=== PATIENT | female | born 1970 | race Caucasian/White ===

== ENCOUNTER → 2020-05-04 08:59 | Outpatient (CLI) | payer OTHER, BC, SELFPAY ==
--- NOTE | ~2020-05-04 | XR_ITS ---
XR finger 3rd LT min 2V DATE: 05/04/2020 09:21 INDICATION: Foreign body third finger, possible piece of what TECHNIQUE: 4 views COMPARISON: None FINDINGS: No radiopaque soft tissue foreign body is evident. No recent fracture, dislocation, periost eal reaction or bone destruction is evident. Joint spaces are preserved. IMPRESSION: No significant abnormality Reviewed, dictated and finalized at location B. IMPRESSION: No significant abnormality
== END ==
PROVIDERS: Visit Provider Specialist
DX: S60.453A Superficial foreign body of left middle finger, initial encounter (principal); X58.XXXA Exposure to other specified factors, initial encounter
CPT/HCPCS: 73140

== ENCOUNTER 2022-09-24 16:50 | Emergency (ER) | payer OTHER, BC, SELFPAY ==
--- NOTE | ~2022-09-24 | XR_ITS ---
EXAMINATION: XR chest 2V Exam Date/Time: 09/24/2022 17:20 [facility]LL[facility] RUNNER HISTORY: heart palpitations Comparison: 06/17/2019. RESULT: Lines, tubes, and devices: None. Lungs and pleura: Clear. Cardiomediastinal silhouette: Stable. Other: No acute osseous or upper abdominal finding. IMPRESSION: No acute cardiopulmonary process. Reviewed, dictated and finalized at location K. LER RUNNER
--- NOTE | 2022-09-24 16:51 | ECG_ITS ---
Measurements Intervals [place] Rate: 101 P: 38 OR: 149 QRS: -18 QRSD: 105 T: 32 QT: 355 QTc: 461 Interpretive Statements SINUS TACHYCARDIA RSR' V1 AND V2 NONSPECIFIC T-WAVE ABNORMALITY BORDERLINE ECG NO PREVIOUS ECG AVAILABLE FOR COMPARISON Electronically Signed On 09-25-2022 16:44:48 [employer] DEVELOPER by Wilber Abarca M.D.
[2022-09-24 16:54] VITALS: BP 161/101; PULSE 101; RESP 20; TEMP 36.4; O2SAT 99
[2022-09-24 17:26] LABS: Alanine Aminotransferase 20 U/L (6-35); Albumin Level 4.4 g/dL (3.5-5.1); Alkaline Phosphatase 64 U/L (38-126); Anion Gap 5 mmol/L (8-16); Aspartate Amino Transferase 26 U/L (14-36); Bilirubin,Total 0.4 mg/dL (0.2-1.3); Blood Urea Nitrogen 19 mg/dL (7-17); Calcium 9.1 mg/dL (8.4-10.2); Carbon Dioxide 24 mmol/L (22-30); Chloride 102 mmol/L (98-107); Estimated CRCL calculation 123 ml/min; Estimated Glomerular Filt Rate > 60; Glucose 94 mg/dL (65-110); Lipase 85 U/L (23-300); Potassium 4.2 mmol/L (3.4-5.0); Sodium 131 mmol/L (137-145)
[2022-09-24 17:28] LABS: Basophils Absolute Auto 0.1 K/mm3 (0.0-0.1); Basophils Percent Auto 0.7 % (0.2-1.2); Eosinophils Absolute Auto 0.1 K/mm3 (0-0.3); Eosinophils Percent Auto 1.4 % (0-4.4); Hematocrit 40.7 % (37.0-47.0); Hemoglobin 13.3 g/dL (12.0-15.0); Immature Granulocyte Absolute 0.04 K/mm3 (0.00-0.031); Immature Granulocyte Percent A 0.5 % (0-0.5); Lymphocytes Absolute Auto 2.18 K/mm3 (0.9-3.2); Lymphocytes Percent Auto 26.1 % (18.3-44.2); Mean Corpuscular HGB Conc 32.7 g/dl (32-36); Mean Corpuscular Hemoglobin 27.5 pg (26-34); Mean Corpuscular Volume 84.3 fl (80-100); Mean Platelet Volume 10.4 fl (7.4-10.4); Monocytes Absolute Auto 0.6 K/mm3 (0.1-0.6); Monocytes Percent Auto 6.8 % (2.6-8.5); Neutrophils Absolute Auto 5.4 K/mm3 (1.3-6.7); Neutrophils Percent Auto 64.5 % (45.5-73.1); Platelet Count Result 253 k/mm3 (150-375); Red Blood Count 4.83 M/mm3 (4.2-5.4); Red Cell Distribution Width 13.8 % (11.5-14.5); White Blood Count 8.3 K/mm3 (4.5-10.0)
[2022-09-24 17:38] LABS: Troponin I < 0.012 ng/mL (0.000-0.034)
[2022-09-24 17:39] LABS: Prothrombin Time 12.5 Seconds (11.1-14.7)
[2022-09-24] MEDS: ASPIRIN 81 MG CHEWABLE TABLET 324 MG PO (17:46)
[2022-09-24 17:52] LABS: Troponin I < 0.012 ng/mL (0.000-0.034)
[2022-09-24] MEDS: SODIUM CHLORIDE 0.9% IV 1,000 ML 999 ML IV CONT (19:05)
--- NOTE | 2022-09-24 19:20 | ED.GENADULT ---
HPI - General Adult General Chief complaint: Arrhythmia/Palpitations Stated complaint: Increased heart rate Time Seen by Provider: 09/24/22 18:53 History of Present Illness HPI narrative: 52-year-old female but reports no significant past medical history presenting to the emergency department for evaluation of heart palpitations. Patient states that yesterday she had a heart rate of low 100s and then it reoccurred today. Patient states she does drink fluids and states she does not think she is dehydrated. Patient reports her resting heart rate is typically in the 60s. Patient denies any change in medications. Patient states he did have some anxiety associated with this and thought this may be a contributing factor. Patient denies any prior history of PE or DVT. Patient has no lower extremity swelling or tenderness, no recent long car rides or plane trips, patient is not on hormone therapy and patient has no history of cancer. Patient's heart rate was in the 90s but patient states her heart rate does not feel like it is racing at this moment. Related Data Allergies Allergy/AdvReac Type Severity Reaction Status Date / Time erythromycin base Allergy Severe HIVE, Verified 09/24/22 17:29 ITCHEY, RASH Review of Systems Review of Systems: CONSTITUTIONAL: Denies fever, chills, or sweats. EYES: Denies visual changes, redness, or discharge. ENT: Denies rhinorrhea, congestion, sore throat, or otalgia. CARDIOVASCULAR: See HPI RESPIRATORY: Denies cough or dyspnea. GASTROINTESTINAL: Denies abdominal pain, nausea, vomiting, or diarrhea. GENITOURINARY: Denies dysuria or hematuria. SKIN: Denies rash or itching. MUSCULOSKELETAL: Denies back pain, joint pain, or myalgia. NEUROLOGIC: Denies headache, numbness, or weakness. Exam Narrative: APPEARANCE: Well appearing, no pain, no distress, well-nourished. HEAD: normocephalic, atraumatic. EYES: PERRLA/EOMI, conjunctivae clear. NOSE: Normal no drainage EARS:TMS clear with good light reflex. THROAT: Pharynx clear, no exudate. NECK: Supple. No adenopathy, no masses. RESPIRATORY: Airway patent, respirations nonlabored. Clear to auscultation bilaterally, no rales, rhonchi, wheezing. CARDIOVASCULAR: Regular rate and rhythm without murmurs rubs or gallops. ABDOMINAL: Soft, nontender, nondistended, normal bowel sounds MUSCULOSKELETAL: Moves all extremities. Strength/ROM intact, No edema, No calf tenderness. NEURO: Alert. Cranial nerves II through XII intact. Grossly intact SKIN: Warm, dry. Normal Color Course Course Emergency Course: Patient tachycardia did improve with rehydration. Patient's resting heart rate is in the 80s at this point. Patient denies any sensation of irregular heart rate. Patient denies any current chest pain or shortness of breath. Patient is afebrile with no leukocytosis. Patient had negative serial troponins and her D-dimer was within normal limits. Patient did have some hyponatremia with a sodium of 131 but patient was treated with 1 L normal saline. Patient does have normal kidney function. Chest x-ray showed no acute cardiopulmonary normality. EKG showed no significant arrhythmias. Patient was updated on the results of the work-up and on the importance having close follow-up with her primary care physician. Patient was educated on the importance of increasing her water intake and decreasing any caffeine or stimulant intake. Patient was also encouraged of close follow-up with her primary care physician to have additional outpatient stress testing and potential Holter monitor. All questions concerns were addressed. Patient was comfortable to plan for discharge and close follow-up. Vital Signs Vital signs: Vital Signs Temperature 97.6 F 09/24/22 16:54 Pulse Rate 101 H 09/24/22 16:54 Respiratory Rate 20 09/24/22 16:54 Blood Pressure 161/101 H 09/24/22 16:54 Pulse Oximetry 99 09/24/22 16:54 Oxygen Delivery Room Air 09/24/22 16:54 [facility]
[2022-09-24 19:27] VITALS: BP 143/84; PULSE 91; RESP 18; O2SAT 96
[2022-09-24 20:29] LABS: D Dimer 0.37 ug/mL (<0.48)
[2022-09-24 20:35] VITALS: BP 144/93; PULSE 96; RESP 21; O2SAT 95
[2022-09-24 21:29] VITALS: BP 149/92; PULSE 90; RESP 20; O2SAT 98
== END 2022-09-24 21:31 | disposition home or self-care (01) ==
PROVIDERS: Emergency Medicine; Emergency Provider Emergency Medicine
DX: R00.2 Palpitations (principal); R00.0 Tachycardia, unspecified
CPT/HCPCS: 36415; 71046; 80053; 83690; 84484; 85025; 85380; 85610; 85730; 93005; 96360; 99284; A9270; J7030

== ENCOUNTER 2022-12-21 08:11 | Emergency (ER) | payer OTHER, BC, SELFPAY ==
--- NOTE | 2022-12-21 08:25 | ED.FEMALEGU ---
HPI - Female Genitourinary General Chief complaint: Urogenital-Female Stated complaint: uti Time Seen by Provider: 12/21/22 08:25 Source: patient and RN notes reviewed History of Present Illness HPI Narrative: Patient is a 52-year-old female who presents to urgent care with complaints of dysuria and urinary frequency that started on Sunday. Patient states she has taken azo and Tylenol with the last dose of azo being last night. Patient denies any fever, nausea, vomiting or abdominal discomfort. No other acute complaints. No acute distress noted. Patient aware of the plan of care. Some parts of this dictation were generated by voice recognition software and may contain typographical and/or grammatical inaccuracies. Related Data Home Medications Medication Instructions Recorded Confirmed multivit with minerals-iron 18 1 tablet PO DAILY 12/21/22 12/21/22 mg-folic ac 400 mcg-vit K 25 mcg tablet (Adults Multivitamin) Allergies Allergy/AdvReac Type Severity Reaction Status Date / Time erythromycin base Allergy Severe HIVE, Verified 12/21/22 08:22 ITCHEY, RASH Review of Systems Review of Systems: CONSTITUTIONAL: Denies fever, chills, or sweats. EYES: Denies visual changes, redness, or discharge. ENT: Denies rhinorrhea, congestion, sore throat, or otalgia. CARDIOVASCULAR: Denies chest pain, palpitations, or edema. RESPIRATORY: Denies cough or dyspnea. GASTROINTESTINAL: Denies abdominal pain, nausea, vomiting, or diarrhea. GENITOURINARY: Reports of dysuria, frequency, urgency SKIN: Denies rash or itching. MUSCULOSKELETAL: Denies back pain, joint pain, or myalgia. NEUROLOGIC: Denies headache, numbness, or weakness. All other systems reviewed are negative, except as documented in HPI. PMFSH Comments At the time of my signature, I reviewed and agree with the nursing past medical, surgical, social, and family history. There is no relevant family history pertinent to the patient complaint. Exam Narrative: GENERAL: This is a well-nourished, well-developed patient, in no apparent distress. HEAD: normocephalic, atraumatic. EYES: PERRL. Sclera clear/white. Vision is grossly intact. EARS: External ears normal NOSE: External nose normal with no obvious nasal discharge, nares without redness, no rhinorrhea. THROAT: Mucous membranes moist NECK: Neck supple RESPIRATORY: Clear to auscultation. Breath sounds equal bilaterally. No wheezes, rales, or rhonchi. GASTROINTESTINAL: Abdomen soft, mild suprapubic tenderness, nondistended. Bowel sounds are active. SKIN: warm, intact with no suspicious lesions or rash, good texture and turgor. NEURO: awake, alert, and oriented to person, place and time. There were no obvious focal neurologic abnormalities. EXTREMITIES: No clubbing, cyanosis, or edema. BACK: Bilateral CVA tenderness Course Course Level of Care: Express Care Visit Vital Signs Vital signs: Vital Signs Temperature 98.1 F 12/21/22 08:27 Pulse Rate 94 12/21/22 08:27 Respiratory Rate 16 12/21/22 08:27 Blood Pressure 133/96 H 12/21/22 08:27 Pulse Oximetry 97 12/21/22 08:27 Temperature 98.1 F 12/21/22 08:27 Pulse Rate 94 12/21/22 08:27 Respiratory Rate 16 12/21/22 08:27 Blood Pressure 133/96 H 12/21/22 08:27 Pulse Oximetry 97 12/21/22 08:27 Reviewed- Patient is informed that they may have pre-hypertension or hypertension based on a blood pressure reading in the department. I recommend the patient call the primary care provider listed on their discharge instructions or a physician of their choice this week to arrange follow-up for further evaluation of possible pre-hypertension or hypertension. MDM - Female Genitourinary MDM Narrative Medical decision making narrative: Reviewed lab results with the patient. She is aware that urinalysis appears to be indicative a urinary tract infection. Advised patient to complete the oral antibiotic regimen as prescribed. Be sure to
[2022-12-21 08:27] VITALS: BP 133/96; PULSE 94; RESP 16; TEMP 36.7; O2SAT 97
== END 2022-12-21 08:55 | disposition home or self-care (01) ==
PROVIDERS: Emergency Provider Nurse Practitioner Family
DX: N39.0 Urinary tract infection, site not specified (principal)
CPT/HCPCS: 81003; 87077; 87086; 87186; 99213; G0463